=== PATIENT | male | born 1975 | race Caucasian/White ===

== ENCOUNTER 2021-02-24 14:05 | Emergency (ER) | payer MEDICAID, SELFPAY ==
[2021-02-24 14:06] VITALS: BP 116/77; PULSE 84; RESP 24; TEMP 36.2; O2SAT 96; BMI 26.1
--- NOTE | 2021-02-24 14:20 | CT_ITS ---
STUDY: CT BRAIN WITHOUT CONTRAST REASON FOR EXAM: Male, 45 years old. Change in Mental Status RADIATION DOSAGE (If Supplied By Facility): CTDIvol = ( 44.99 ) mGy, DLP = ( 779.24 ) mGycm TECHNIQUE: Transaxial CT imaging of the brain was performed without administration of intravenous contrast material. Individualized dose optimization techniques were used for this CT. COMPARISON: No relevant priors. FINDINGS: Normal soft tissue structures. Normal calvarium. Normal size ventricles and extra-axial spaces for the patient''s age. Normal white matter tracts of the cerebral hemispheres. Normal basal ganglia and thalami. Normal brainstem. Normal cerebellum. There is no intracranial hemorrhage. There are no findings of an acute ischemic infarction. Normal visualized paranasal sinuses. CT/Brain/Head without Contrast IMPRESSION: Normal unenhanced CT scan of the brain. Electronically Signed: Gume Choe MD at 15:36 EST , Service support ,
--- NOTE | 2021-02-24 14:20 | EKG12_ITS ---
Test Reason : Blood Pressure : / mmHG Vent. Rate : 088 BPM Atrial Rate : 088 BPM P-R Int : 166 ms QRS Dur : 080 ms QT Int : 420 ms P-R-T Axes : 071 081 044 degrees QTc Int : 508 ms Somatic/Motion Artifact Normal sinus rhythm Prolonged QT Abnormal ECG Confirmed by MICHAEL MOON, YESSY ([id number]), photo editor MARGAUX MORENO ([id number]) on 02/26/2021 9:41:29 AM Referred By: EULALIA Confirmed By:YESSY RODRIGUEZ MD
[2021-02-24 14:59] LABS: Absolute Lymphocyte Count 2.15 X10^3/uL (0.83-4.51); Absolute Neutrophil Count 8.4 X10^3/uL (2.0-7.7); Basophil# 0.07 X10^3/uL; Basophil% 0.6 % (0-1); Eosinophil# 0.15 X10^3/uL; Eosinophils% 1.3 % (0-5); Hemoglobin 15.4 g/dL (13.0-16.5); Lymphocyte # 2.15 X10^3/ul (0.83-4.51); Lymphocyte % 18.2 % (19-41); Mean Corp Hgb Conc 34.2 g/dL (32-36); Mean Corpuscular Hgb 30.3 pg (27.0-32.0); Mean Corpuscular Volume 88.4 fL (80-94); Mean Platelet Vol. 9.5 fl (6.2-12.0); Monocyte# 1.01 X10^3/uL; Monocyte% 8.6 % (0-10); NRBC Flagged by Analyzer 0 % (0-5); Neutrophil # 8.38 X10^3/uL (2.7-7.7); Platelet Count 356 K/mm3 (150-450); RBC Distribution Width CV 13.4 % (11.6-14.6); RBC Distribution Width SD 43.5 fl (35.1-43.9); Red Blood Count 5.09 M/mm3 (4.6-6.2); White Blood Count 11.8 K/mm3 (4.4-11.0)
[2021-02-24 15:12] LABS: Anion Gap 7 (5-15); BUN 14 mg/dL (7-18); Calcium,Total 9.6 mg/dL (8.5-10.1); Chloride 109 mmol/L (98-107); Creatinine, Serum 1.27 mg/dL (0.70-1.30); EST Glomerular Filtration Rate 65 mL/min (>60); Est Glom Filt Rate - Afr Amer 79 mL/min (>60); Estimated Creatinine Clearance 74.23 ml/min; Glucose 99 mg/dL (74-106); Potassium 3.5 mmol/L (3.5-5.1); Sodium Level 142 mmol/L (136-145)
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
--- NOTE | 2021-02-24 15:25 | RAD_ITS ---
STUDY: X-RAY CHEST REASON FOR EXAM: Male, 45 years old. Altered mental status. Confusion. TECHNIQUE: Single AP portable view of the chest. COMPARISON: None. FINDINGS: There is hyperinflation of the lungs consistent with chronic obstructive lung disease (COPD). There is no demonstrated pleural abnormality. Normal size heart. Normal mediastinum and elmer. Normal visualized pulmonary arteries. Normal visualized aortic arch and descending thoracic aorta. Normal visualized thoracic spine. Normal visualized ribs, clavicles, and shoulders. There is no demonstrated abnormality of the visualized soft tissue structures of the upper abdomen. RAD/Chest 1 View (Portable) IMPRESSION: Hyperinflation. Electronically Signed: Gume Choe MD at 15:37 EST , Service support ,
[2021-02-24 16:02] VITALS: BP 115/86; PULSE 85; RESP 16; O2SAT 96
[2021-02-24 16:10] LABS: Alcohol, Blood (Medical)-Serum < 3.0 mg/dL
[2021-02-24 16:34] LABS: Bacteria 0 SEEN /hpf (None Seen); Red Blood Cells-Urine 0 SEEN /hpf (0-5); Squamous Epithelial Cells - UA 0 SEEN /hpf (0-5)
[2021-02-24 16:44] LABS: Color, Urine Yellow (Yellow); Glucose, Dipstick Normal (Normal); Ketone-Dipstick 50 mg/dl (Negative); Leukocyte Esterase-Dipstick 100 /ul (Negative); Nitrite-Dipstick Negative (Negative); Occult Blood-Urine Negative /ul (Negative); Protein-Dipstick 15 mg/dl (Negative); Urine Bilirubin Dipstick Negative (Negative); Urine Clarity Clear (Clear); Urine Urobilinogen 1 mg/dl (Normal)
[2021-02-24 16:53] LABS: Mucous, Urine 2+ /hpf (<or=2+); White Blood Cells 5-10 SEEN /hpf (0-5)
[2021-02-24 16:56] LABS: Amphetamine Urine VISTA POSITIVE (<1000 ng/mL); Barbiturate Urine VISTA NEGATIVE (< 200 ng/mL); Benzodiazepine Urine VISTA NEGATIVE (< 200 ng/mL); Cocaine Urine VISTA NEGATIVE (< 300 ng/mL); Ecstacy Urine VISTA POSITIVE (< 500 ng/mL); Methadone Urine VISTA NEGATIVE (< 300 ng/mL); PCP Urine VISTA NEGATIVE (< 25 ng/mL); THC Urine VISTA NEGATIVE (< 50 ng/mL); Vista UDS pH Range 5
== END 2021-02-24 17:20 | disposition home or self-care (01) ==
PROVIDERS: Emergency Provider Student in an Organized Health Care Education/Training Program; Visit Provider Student in an Organized Health Care Education/Training Program
DX: R41.0 Disorientation, unspecified (principal); F15.10 Other stimulant abuse, uncomplicated; Z59.00 Homelessness unspecified
CPT/HCPCS: 70450; 71045; 80048; 80307; 81001; 82077; 85025; 93005; 99282

== ENCOUNTER 2021-02-25 09:01 | Emergency (ER) | payer MEDICAID, SELFPAY ==
[2021-02-25] VITALS (7 sets, daily range): BP systolic 112–129; BP diastolic 47–78; PULSE 65–78; RESP 12–16; TEMP 36.3; O2SAT 99–100; BMI 26.4
[2021-02-25] MEDS: 0.9% Normal Saline 1,000 ML 1000 ML IV (09:07)
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
--- NOTE | 2021-02-25 09:09 | ED.RN ---
PT SNORING, HAVING TO AWAKE PT UP TO ASK QUESTIONS.
[2021-02-25 09:44] LABS: Absolute Lymphocyte Count 1.42 X10^3/uL (0.83-4.51); Absolute Neutrophil Count 9.2 X10^3/uL (2.0-7.7); Basophil# 0.05 X10^3/uL; Basophil% 0.4 % (0-1); Eosinophil# 0.07 X10^3/uL; Eosinophils% 0.6 % (0-5); Hematocrit 44.4 % (40-54); Hemoglobin 15.5 g/dL (13.0-16.5); Lymphocyte # 1.42 X10^3/ul (0.83-4.51); Lymphocyte % 12.3 % (19-41); Mean Corp Hgb Conc 34.9 g/dL (32-36); Mean Corpuscular Hgb 30.1 pg (27.0-32.0); Mean Corpuscular Volume 86.2 fL (80-94); Mean Platelet Vol. 9.9 fl (6.2-12.0); Monocyte# 0.81 X10^3/uL; NRBC Flagged by Analyzer 0 % (0-5); Neutrophil # 9.16 X10^3/uL (2.7-7.7); Neutrophil % 79.2 % (47-70); Platelet Count 339 K/mm3 (150-450); RBC Distribution Width CV 13.2 % (11.6-14.6); RBC Distribution Width SD 41.2 fl (35.1-43.9); Red Blood Count 5.15 M/mm3 (4.6-6.2); White Blood Count 11.6 K/mm3 (4.4-11.0)
[2021-02-25 09:52] LABS: Anion Gap 8 (5-15); BUN 20 mg/dL (7-18); BUN/Creat Ratio 17.1 RATIO (10-20); Calcium,Total 9.5 mg/dL (8.5-10.1); Chloride 107 mmol/L (98-107); Creatinine, Serum 1.17 mg/dL (0.70-1.30); EST Glomerular Filtration Rate 72 mL/min (>60); Est Glom Filt Rate - Afr Amer 87 mL/min (>60); Estimated Creatinine Clearance 83.19 ml/min; Glucose 99 mg/dL (74-106); Sodium Level 139 mmol/L (136-145)
[2021-02-25 09:53] LABS: Alcohol, Blood (Medical)-Serum < 3.0 mg/dL
[2021-02-25] MEDS: 0.9% Normal Saline 1,000 ML 150 ML IV (10:46)
--- NOTE | 2021-02-25 14:05 | CASEMGMT ---
Social Work Consult: Homeless Referral source: Dr. Young Met with patient in room. Introduced self and social science research assistant role. Patient agreeable to speak with this social science research assistant. This social science research assistant broached topic of housing for patient. Patient confirms to be homeless. Patient reports to have been homeless for the past few days. Prior to being homeless patient was incarcerated for the past year per patient report. Patient reports that patient was staying with a friend and to have had a falling out with the friend and now does not have anywhere to go. This social science research assistant updated patient on local [facility], [facility] Patient reports to have not been aware of this. Patient denies any support from family/friends. Patient does not have transportation. Patient denies substance abuse/use or mental health concerns/diagnosis. This is patient's second time coming to the [facility] ER due to hypothermia in the last two days. Patient is agreeable to this social science research assistant contacting [employer] [facility] [employer] to see if there is an opening for patient. Telephone call to [facility], intake. Not accepting anyone due to a current COVID-19 outbreak, unable to accept anyone for 10 days. This social science research assistant inquired any other possible housing options for [place]. [employer] [employer] reports to not be aware of any and recommend looking into other counties. Met with patient in room and updated patient on above information, patient agreeable to this social science research assistant looking into homeless shelters outside of [place]. Telephone call to [facility] reports to have an opening and to be able to accept patient but not able to provide transportation. Met with patient in room and updated on above. Patient reports to have no transportation options or funds to be able to afford a taxi. This social science research assistant collaborating with medical team and ER director. A taxi voucher to be provided to patient. This is second ED visit due to hypothermia this week. Patient updated on plan and agreeable. Disposition: [facility]. Hermelinda CARD, NIKA
== END 2021-02-25 16:04 | disposition home or self-care (01) ==
PROVIDERS: Emergency Provider Emergency Medicine; Visit Provider Emergency Medicine
DX: T33.832A Superficial frostbite of left toe(s), initial encounter (principal); F15.90 Other stimulant use, unspecified, uncomplicated; Z59.00 Homelessness unspecified; X31.XXXA Exposure to excessive natural cold, initial encounter; Y93.9 Activity, unspecified; Y92.9 Unspecified place or not applicable
CPT/HCPCS: 36415; 80048; 82077; 85025; 96361; 96374; 99284; J7030